=== PATIENT | male | born 1985 | race Two or more races ===

== ENCOUNTER 2017-09-26 09:56 | Emergency (ER) | payer OTHER ==
[~2017-09-26] VITALS: Ht 193 cm; Wt 199.6 kg
[~2017-09-26 09:56] MED LIST: AZIT250 PO; CEPH500 PO; CRUTCH3 USE; CRUTCH4 XX; DIPATR PO; DOXY100 PO; FOLBIC RF TABL1 EACH; FURO20 PO; HYDACE5 PO; HYDCHL25 PO; Hydrochlorothia25 MG PO; IBUP600 PO; LIDO2L MM; LISI5 PO; LOSHYD PO; METF500 PO; Multivitamin1 EAC1 PO; Naprosyn500 MG PO; Norco 5-325 Ta1 EACH PO; OXYACE5T PO; Omeprazole20 M1 PO; PRAHYD1AE TOP; PRED20 PO; PROM25 PO; Percocet 10-321 EACH PO; Percocet 5-3251 EACH PO; Phentermine HCl30 MG PO; RXCEPH500 PO; RXHYDACE PO; RXONDA4ODT MM; RXTRAM50 PO; Robaxin500 MG PO; TRAM50 PO; URSO300 PO
[2017-09-26] MEDS ORDERED: CEFP200 PO (11:52)
== END 2017-09-26 12:02 | disposition home or self-care (01) ==
LOC: ER 09:56
DX: J18.9 Pneumonia, unspecified organism (principal); E66.9 Obesity, unspecified; Z68.43 Body mass index [BMI] 50.0-59.9, adult; I10 Essential (primary) hypertension; E11.9 Type 2 diabetes mellitus without complications; Z88.5 Allergy status to narcotic agent; Z79.899 Other long term (current) drug therapy
CPT/HCPCS: 71046; 99283

== ENCOUNTER 2017-10-09 21:44 | Emergency (ER) | payer OTHER ==
[~2017-10-09] VITALS: Ht 185.4 cm; Wt 197.3 kg
[~2017-10-09 21:44] MED LIST changes: +CEFP200 PO
[2017-10-09 22:33] LABS: BASOPHILS ABSOLUTE AUTO 0.03 K/mm3 (0.00-0.23); BASOPHILS PERCENT AUTO 0 % (0-2); EOSINOPHILS ABSOLUTE AUTO 0.19 K/mm3 (0.00-0.68); EOSINOPHILS PERCENT AUTO 2 % (0-6); Hematocrit 44.8 % (37.0-53.0); Hemoglobin 14.9 g/dL (13.5-17.5); IMMATURE GRAN ABSOLUTE AUTO 0.02 K/mm3 (0.00-0.10); IMMATURE GRAN PERCENT AUTO 0 % (0-1); LYMPHOCYTES ABSOLUTE AUTO 2.89 K/mm3 (0.84-5.20); LYMPHOCYTES PERCENT AUTO 36 % (21-46); MONOCYTES ABSOLUTE AUTO 0.85 K/mm3 (0.16-1.47); MONOCYTES PERCENT AUTO 11 % (4-13); Mean Corpuscular HGB 29.6 pg (26.0-34.0); Mean Corpuscular HGB Conc 33.3 g/dL (31.5-36.5); Mean Corpuscular Volume 89 fL (80-100); Mean Platelet Volume 9.9 fL (9.1-12.4); NEUTROPHILS ABSOLUTE AUTO 3.99 K/mm3 (1.96-9.15); NEUTROPHILS PERCENT AUTO 50 % (41-73); Platelet Count 317 K/mm3 (150-400); RDW Standard Deviation 42.5 fL (35.1-46.3); Red Blood Cell Count 5.03 M/mm3 (4.30-5.90); White Blood Cell Count 7.97 K/mm3 (4.00-11.30)
[2017-10-09 22:53] LABS: Alanine Aminotransfer (ALT/SGP 21 U/L (12-78); Albumin, Blood 3.4 g/dL (3.4-5.0); Albumin/Globulin Ratio 0.8 (0.8-1.8); Alk Phos 75 U/L (50-136); Anion Gap 6 mmol/L (6-16); Aspartate Aminotrans (AST/SGOT 15 U/L (12-37); Bilirubin, Total 0.8 mg/dL (0.1-1.0); Blood Urea Nitrogen 18 mg/dL (8-24); Bun/Creatinine Ratio 21.9 (12.0-20.0); CO2, Blood 29 mmol/L (21-32); Calcium, Blood 8.7 mg/dL (8.5-10.1); Chloride, Blood 109 mmol/L (98-108); Creatinine, Blood 0.82 mg/dL (0.60-1.20); Glomerular Filtration Rate >60 (60-); Glucose, Blood 85 mg/dL (70-99); Potassium, Blood 3.8 mmol/L (3.5-5.5); Sodium, Blood 144 mmol/L (136-145); Total Protein, Blood 7.4 g/dL (6.4-8.2)
[2017-10-09 22:59] LABS: Source, Urine Clean Catch
[2017-10-09 23:01] LABS: Bilirubin, Urine Neg (Neg); Blood, Urine Neg (Neg); Glucose Qualitative, Urine Neg (Neg); Ketones, Urine Neg (Neg); Leukocyte Esterase, Urine Neg (Neg); Nitrite, Urine Neg (Neg); Protein, Urine Neg (Neg); Urobilinogen, Urine 2+ (Normal)
[2017-10-09 23:07] LABS: Appearance, Urine Clear (Clear); Color, Urine Yellow (P-Yellow)
== END 2017-10-10 00:54 | disposition home or self-care (01) ==
LOC: ER 21:44
PROVIDERS: Emergency Medicine
DX: R10.12 Left upper quadrant pain (principal); I10 Essential (primary) hypertension; E11.9 Type 2 diabetes mellitus without complications; E66.01 Morbid (severe) obesity due to excess calories; Z88.5 Allergy status to narcotic agent; Z79.899 Other long term (current) drug therapy; Z98.84 Bariatric surgery status
CPT/HCPCS: 36415; 74022; 80053; 81003; 83690; 85025; 99283

== ENCOUNTER 2019-07-13 08:21 | Emergency (ER) | payer SELFPAY ==
[~2019-07-13] VITALS: Ht 193 cm; Wt 158.8 kg
[~2019-07-13 08:21] MED LIST changes: +OMEPRAZOLE20 MG PO
[2019-07-13 08:54] LABS: Source, Urine Clean Catch
[2019-07-13 09:09] LABS: BASOPHILS ABSOLUTE AUTO 0.04 K/mm3 (0.00-0.23); BASOPHILS PERCENT AUTO 0 % (0-2); EOSINOPHILS ABSOLUTE AUTO 0.14 K/mm3 (0.00-0.68); EOSINOPHILS PERCENT AUTO 1 % (0-6); Hematocrit 44.8 % (37.0-53.0); IMMATURE GRAN ABSOLUTE AUTO 0.03 K/mm3 (0.00-0.10); IMMATURE GRAN PERCENT AUTO 0 % (0-1); LYMPHOCYTES ABSOLUTE AUTO 1.84 K/mm3 (0.84-5.20); LYMPHOCYTES PERCENT AUTO 18 % (21-46); MONOCYTES ABSOLUTE AUTO 0.76 K/mm3 (0.16-1.47); MONOCYTES PERCENT AUTO 7 % (4-13); Mean Corpuscular HGB 30.9 pg (26.0-34.0); Mean Corpuscular HGB Conc 33.5 g/dL (31.5-36.5); Mean Corpuscular Volume 92 fL (80-100); Mean Platelet Volume 9.6 fL (9.1-12.4); NEUTROPHILS ABSOLUTE AUTO 7.72 K/mm3 (1.96-9.15); NEUTROPHILS PERCENT AUTO 73 % (41-73); Platelet Count 243 K/mm3 (150-400); RDW Coefficient Variation 12.8 % (11.7-14.2); RDW Standard Deviation 43.8 fL (35.1-46.3); Red Blood Cell Count 4.85 M/mm3 (4.30-5.90); White Blood Cell Count 10.53 K/mm3 (4.00-11.30)
[2019-07-13 09:14] LABS: Bilirubin, Urine Neg (Neg); Blood, Urine Neg (Neg); Glucose Qualitative, Urine Neg (Neg); Ketones, Urine Neg (Neg); Leukocyte Esterase, Urine Neg (Neg); Nitrite, Urine Neg (Neg); Protein, Urine Neg (Neg); Urobilinogen, Urine 1+ (Normal)
[2019-07-13 09:20] LABS: Appearance, Urine Clear (Clear); Color, Urine Yellow (P-Yellow)
[2019-07-13 09:28] LABS: Alanine Aminotransfer (ALT/SGP 30 U/L (12-78); Albumin, Blood 3.8 g/dL (3.4-5.0); Albumin/Globulin Ratio 1.1 (0.8-1.8); Alk Phos 56 U/L (50-136); Anion Gap 4 mmol/L (6-16); Aspartate Aminotrans (AST/SGOT 22 U/L (12-37); Bilirubin, Total 1.1 mg/dL (0.1-1.0); Blood Urea Nitrogen 17 mg/dL (8-24); Bun/Creatinine Ratio 24.1 (12.0-20.0); CO2, Blood 27 mmol/L (21-32); Calcium, Blood 8.5 mg/dL (8.5-10.1); Chloride, Blood 111 mmol/L (98-108); Globulin, Blood 3.5 g/dL (2.2-4.0); Glomerular Filtration Rate >60 (60-); Glucose, Blood 90 mg/dL (70-99); Potassium, Blood 3.9 mmol/L (3.5-5.5); Sodium, Blood 142 mmol/L (136-145); Total Protein, Blood 7.3 g/dL (6.4-8.2)
[2019-07-13] MEDS ORDERED: Percocet 5-3251 EACH PO (09:41)
== END 2019-07-13 09:52 | disposition home or self-care (01) ==
LOC: ER 08:21
PROVIDERS: Emergency Medicine
DX: N50.811 Right testicular pain (principal); N50.82 Scrotal pain; E11.9 Type 2 diabetes mellitus without complications; I10 Essential (primary) hypertension; E66.9 Obesity, unspecified; Z88.5 Allergy status to narcotic agent; Z79.899 Other long term (current) drug therapy
CPT/HCPCS: 36415; 76870; 80053; 81003; 85025; 96374; 96375; 99284-25; J2270; J2405

== ENCOUNTER 2021-12-31 15:22 | Emergency (ER) | payer OTHER ==
[~2021-12-31] VITALS: Ht 193 cm; Wt 176.9 kg
[~2021-12-31 15:22] MED LIST changes: +Benadryl 50 mg50 MG PO; +IBUP400 PO
[2021-12-31 16:34] LABS: Source, Urine Clean Catch
[2021-12-31 16:40] LABS: Appearance, Urine Clear (Clear); Bilirubin, Urine Neg (Neg); Blood, Urine 1+ (Neg); Color, Urine Yellow (P-Yellow); Glucose Qualitative, Urine Neg (Neg); Ketones, Urine Neg (Neg); Leukocyte Esterase, Urine Neg (Neg); Nitrite, Urine Neg (Neg); Protein, Urine Neg (Neg); Urobilinogen, Urine 1+ (Normal)
[2021-12-31 16:49] LABS: BASOPHILS ABSOLUTE AUTO 0.05 K/mm3 (0.00-0.23); BASOPHILS PERCENT AUTO 0 % (0-2); EOSINOPHILS ABSOLUTE AUTO 0.06 K/mm3 (0.00-0.68); EOSINOPHILS PERCENT AUTO 0 % (0-6); Hematocrit 47.1 % (37.0-53.0); Hemoglobin 16.5 g/dL (13.5-17.5); IMMATURE GRAN ABSOLUTE AUTO 0.07 K/mm3 (0.00-0.10); IMMATURE GRAN PERCENT AUTO 1 % (0-1); LYMPHOCYTES ABSOLUTE AUTO 1.55 K/mm3 (0.84-5.20); LYMPHOCYTES PERCENT AUTO 10 % (21-46); MONOCYTES ABSOLUTE AUTO 1.25 K/mm3 (0.16-1.47); MONOCYTES PERCENT AUTO 8 % (4-13); Mean Corpuscular HGB 31.1 pg (26.0-34.0); Mean Corpuscular Volume 89 fL (80-100); NEUTROPHILS ABSOLUTE AUTO 12.57 K/mm3 (1.96-9.15); NEUTROPHILS PERCENT AUTO 81 % (41-73); RDW Coefficient Variation 13.1 % (11.7-14.2); RDW Standard Deviation 42.9 fL (35.1-46.3); Red Blood Cell Count 5.31 M/mm3 (4.30-5.90); White Blood Cell Count 15.55 K/mm3 (4.00-11.30)
[2021-12-31 16:54] LABS: Bacteria Mod /hpf; Red Blood Cells, Urine 0-2 /hpf (0-2); Squamous Epithelial Cells Not Seen /hpf (Few)
[2021-12-31 17:00] LABS: Mean Platelet Volume 10.2 fL (9.1-12.4); Platelet Count 224 K/mm3 (150-400)
[2021-12-31 17:01] LABS: Albumin, Blood 3.8 g/dL (3.4-5.0); Albumin/Globulin Ratio 0.9 (0.8-1.8); Bilirubin, Total 1.4 mg/dL (0.1-1.0); Bun/Creatinine Ratio 17.3 (12.0-20.0); Calcium, Blood 9.1 mg/dL (8.5-10.1); Creatinine, Blood 0.64 mg/dL (0.60-1.20); Globulin, Blood 4.2 g/dL (2.2-4.0)
[2021-12-31] MEDS ORDERED: CEPH500 PO (19:20)
[2021-12-31] MEDS ORDERED: TRAM50 PO (19:24)
== END 2021-12-31 20:35 | disposition home or self-care (01) ==
LOC: ER 15:22
PROVIDERS: Physician Assistant
DX: N39.0 Urinary tract infection, site not specified (principal); I10 Essential (primary) hypertension; E11.9 Type 2 diabetes mellitus without complications
CPT/HCPCS: 74176; 80053; 81001; 85025; 87077; 87086; 87186; 96374; 96375; 99284-25; J0696; J1885; J2405; J3010; J7030

== ENCOUNTER 2022-10-29 09:20 | Emergency (ER) | payer OTHER ==
[~2022-10-29] VITALS: Ht 193 cm; Wt 190.5 kg
[~2022-10-29 09:20] MED LIST changes: +Cyclobenzaprine5 MG PO; +SERT50 PO
[2022-10-29] MEDS ORDERED: Percocet 5-3251 EACH PO (11:07)
[2022-10-29] MEDS ORDERED: Robaxin750 MG PO (11:07)
== END 2022-10-29 11:42 | disposition home or self-care (01) ==
LOC: ER 09:20
DX: M54.10 Radiculopathy, site unspecified (principal); I10 Essential (primary) hypertension; E11.9 Type 2 diabetes mellitus without complications; Z79.899 Other long term (current) drug therapy; Z88.5 Allergy status to narcotic agent
CPT/HCPCS: 99283

== ENCOUNTER 2023-12-09 07:35 | Emergency (ER) | payer BC ==
[~2023-12-09] VITALS: Ht 193 cm; Wt 217.7 kg
[~2023-12-09 07:35] MED LIST changes: +Robaxin750 MG PO
[2023-12-09 08:20] VITALS: BP 157/100
[2023-12-09] MEDS ORDERED: LOSARTAN POTASS25 M2 PO (08:23)
[2023-12-09] MEDS ORDERED: OMEP20ER PO (08:23)
[2023-12-09] MEDS ORDERED: PredniSONE 20 MG Tab PO ONE (08:50)
[2023-12-09] MEDS ORDERED: OXYC5 PO ×2 (08:52→08:54)
[2023-12-09] MEDS ORDERED: METPRE4DP PO (08:52)
== END 2023-12-09 09:03 | disposition home or self-care (01) ==
LOC: ER 07:35
DX: M54.16 Radiculopathy, lumbar region (principal); I10 Essential (primary) hypertension; E66.9 Obesity, unspecified; Z68.43 Body mass index [BMI] 50.0-59.9, adult
CPT/HCPCS: 99283; J7512

== ENCOUNTER 2024-01-25 10:16 | Emergency (ER) | payer BC ==
[~2024-01-25] VITALS: Ht 193 cm; Wt 224.5 kg
[~2024-01-25 10:16] MED LIST changes: +LOSARTAN POTASS25 M2 PO; +METPRE4DP PO; +OMEP20ER PO; +OXYC5 PO
[2024-01-25 10:25] VITALS: BP 160/88
[2024-01-25] MEDS ORDERED: GABA300 PO (10:30)
[2024-01-25] MEDS ORDERED: Ketorolac Tromethamine 30mg Vial IM ONE (10:30)
[2024-01-25] MEDS ORDERED: ESCI20 PO (10:30)
[2024-01-25] MEDS ORDERED: TraMADol HCl 50 MG Tab PO ONE (11:10)
[2024-01-25] MEDS ORDERED: TRAM50 PO (11:50)
== END 2024-01-25 12:01 | disposition home or self-care (01) ==
LOC: ER 10:16
DX: M54.16 Radiculopathy, lumbar region (principal); G89.29 Other chronic pain; E66.01 Morbid (severe) obesity due to excess calories; Z68.44 Body mass index [BMI] 60.0-69.9, adult; I10 Essential (primary) hypertension; E11.9 Type 2 diabetes mellitus without complications; Z79.899 Other long term (current) drug therapy; Z88.5 Allergy status to narcotic agent
CPT/HCPCS: 99283; A9270; J1885

== ENCOUNTER 2024-04-14 09:10 | Emergency (ER) | payer BC ==
[~2024-04-14] VITALS: Ht 193 cm; Wt 221.8 kg
[~2024-04-14 09:10] MED LIST changes: +ESCI20 PO; +GABA300 PO
[2024-04-14 09:35] LABS: Source, Urine Clean Catch
[2024-04-14 09:37] LABS: Appearance, Urine Clear (Clear); Bilirubin, Urine Neg (Neg); Blood, Urine Neg (Neg); Color, Urine Yellow (P-Yellow); Glucose Qualitative, Urine Neg (Neg); Ketones, Urine Neg (Neg); Leukocyte Esterase, Urine Neg (Neg); Nitrite, Urine Neg (Neg); Protein, Urine Neg (Neg); Urobilinogen, Urine NORM (Normal)
[2024-04-14] MEDS ORDERED: Ondansetron 4 MG SoluTab SL ONE (09:45)
[2024-04-14] MEDS ORDERED: Acetaminophen 325 MG TABLET PO ONE (09:45)
[2024-04-14 10:59] LABS: Influenza A, PCR NEGATIVE (NEGATIVE); Influenza B, PCR NEGATIVE (NEGATIVE); Resp Syncytial Virus, PCR NEGATIVE (NEGATIVE); SARS-Cov-2 (COVID-19) PCR, MMC NEGATIVE (NEGATIVE)
[2024-04-14] MEDS ORDERED: ONDA4ODT MM (11:19)
[2024-04-14 11:30] VITALS: BP 130/79
== END 2024-04-14 11:30 | disposition home or self-care (01) ==
LOC: ER 09:10
PROVIDERS: Physician Assistant
DX: B34.9 Viral infection, unspecified (principal); K21.9 Gastro-esophageal reflux disease without esophagitis; I10 Essential (primary) hypertension; Z79.899 Other long term (current) drug therapy; Z88.5 Allergy status to narcotic agent
CPT/HCPCS: 0241U; 81003; 82947; 99283; A9270

== ENCOUNTER 2025-07-06 07:11 | Emergency (ER) | payer BC ==
[~2025-07-06] VITALS: Ht 193 cm; Wt 210.5 kg
[~2025-07-06 07:11] MED LIST changes: +ONDA4ODT MM
[2025-07-06 08:44] LABS: BASOPHILS ABSOLUTE AUTO 0.02 K/mm3 (0.00-0.23); BASOPHILS PERCENT AUTO 0 % (0-2); EOSINOPHILS ABSOLUTE AUTO 0.08 K/mm3 (0.00-0.68); EOSINOPHILS PERCENT AUTO 1 % (0-6); Hematocrit 41.6 % (37.0-53.0); Hemoglobin 13.9 g/dL (13.5-17.5); IMMATURE GRAN ABSOLUTE AUTO 0.02 K/mm3 (0.00-0.10); IMMATURE GRAN PERCENT AUTO 0 % (0-1); LYMPHOCYTES ABSOLUTE AUTO 1.70 K/mm3 (0.84-5.20); LYMPHOCYTES PERCENT AUTO 20 % (21-46); MONOCYTES ABSOLUTE AUTO 0.92 K/mm3 (0.16-1.47); MONOCYTES PERCENT AUTO 11 % (4-13); Mean Corpuscular HGB Conc 33.4 g/dL (31.5-36.5); Mean Corpuscular Volume 92 fL (80-100); NEUTROPHILS ABSOLUTE AUTO 5.68 K/mm3 (1.96-9.15); NEUTROPHILS PERCENT AUTO 68 % (41-73); NRBC ABSOLUTE 0.00 K/mm3 (0.00-0.02); NRBC Auto 0.0 /100 WBC (0.0-0.2); Platelet Count 274 K/mm3 (150-400); RDW Coefficient Variation 12.7 % (11.7-14.2); RDW Standard Deviation 43.2 fL (35.1-46.3)
[2025-07-06] MEDS ORDERED: Morphine Sulfate 4 MG/1 ML Injection IV ONE (08:55)
[2025-07-06] MEDS ORDERED: Ondansetron HCl 2 MG / ML 2ML Vial IV ONE (08:55)
[2025-07-06] MEDS ORDERED: NS 1,000 ML IV SCH (08:55)
[2025-07-06 09:31] LABS: Alanine Aminotransfer (ALT/SGP 72.0 U/L (12-78); Albumin, Blood 3.2 g/dL (3.4-5.0); Albumin/Globulin Ratio 0.8 (0.8-1.8); Anion Gap 8.0 mmol/L (3-11); Aspartate Aminotrans (AST/SGOT 26.0 U/L (12-37); Bilirubin, Total 1.2 mg/dL (0.1-1.0); Blood Urea Nitrogen 11.0 mg/dL (8-24); CO2, Blood 28.0 mmol/L (21-32); Calcium, Blood 8.7 mg/dL (8.5-10.1); Chloride, Blood 105.0 mmol/L (98-108); Creatinine, Blood 0.73 mg/dL (0.60-1.20); Globulin, Blood 4.0 g/dL (2.2-4.0); Glucose, Blood 87.0 mg/dL (70-99); Potassium, Blood 3.8 mmol/L (3.5-5.5); Sodium, Blood 137.0 mmol/L (136-145); Total Protein, Blood 7.2 g/dL (6.4-8.2)
[2025-07-06] MEDS ORDERED: HYDROmorphone HCl/Pf 1MG SYR IV ONE ×2 (09:40→10:50)
[2025-07-06] MEDS ORDERED: Metoclopramide HCl 5MG / ML 2ML Vial IV ONE (09:50)
[2025-07-06] MEDS ORDERED: METO10 PO (10:48)
[2025-07-06] MEDS ORDERED: PANTOPRAZOLE SO40 M2 PO (11:03)
[2025-07-06] MEDS ORDERED: Budeprion Xl300 MG PO (11:03)
[2025-07-06] MEDS ORDERED: [UNRECOGNIZED DRUG - CODE] PO (11:03)
[2025-07-06] MEDS ORDERED: XARELTO20 MG PO (11:03)
[2025-07-06 11:05] VITALS: BP 157/80
== END 2025-07-06 11:05 | disposition home or self-care (01) ==
LOC: ER 07:11
PROVIDERS: Emergency Medicine
DX: K91.89 Other postprocedural complications and disorders of digestive system (principal); K56.7 Ileus, unspecified; Z88.5 Allergy status to narcotic agent; Z79.899 Other long term (current) drug therapy; I10 Essential (primary) hypertension; K21.9 Gastro-esophageal reflux disease without esophagitis; G47.30 Sleep apnea, unspecified
CPT/HCPCS: 74177; 80053; 83690; 85025; 96374-59; 96375; 96376; 99284-25; J1171; J2270; J2405; J2765; J7030; Q9967